=== PATIENT | male | born 1955 | race Caucasian/White ===

== ENCOUNTER 2021-04-20 09:47 | Emergency (ER) | payer OTHER, MEDICARE ==
[~2021-04-20] VITALS: Ht 182.9 cm; Wt 122.7 kg
[~2021-04-20 09:47] MED LIST: CHOL100046 PO; LOSA1TAB41 PO; MULT-1085 PO; VITA1TAB20 PO
[2021-04-20 09:52] VITALS: BP 174/109
[2021-04-20] MEDS ORDERED: furosemide 20MG tablet PO ONE (12:00)
[2021-04-20 12:36] LABS: BASOPHILS % (AUTO) 0.5 % (0-1); EOSINOPHILS # (AUTO) 0.1 X10'3 (0-0.9); EOSINOPHILS % (AUTO) 1.4 % (0-6); HEMATOCRIT 41.1 % (42.0-52.0); HEMOGLOBIN 13.8 g/dl (14.0-17.9); LYMPHOCYTES # (AUTO) 1.3 X10'3 (1.1-4.8); LYMPHOCYTES % (AUTO) 15.3 % (21-51); MEAN CORPUSCULAR HEMOGLOBIN 30.2 PG (27.0-31.0); MEAN CORPUSCULAR HGB CONC 33.6 g/dL (33.0-36.5); MEAN PLATELET VOLUME 9.8 FL (7.4-10.4); MONOCYTES % (AUTO) 11.9 % (2-12); NEUTROPHILS # (AUTO) 5.9 X10'3 (1.8-7.7); NEUTROPHILS % (AUTO) 70.9 % (42-75); PLATELET COUNT 305 X10'3 (140-440); RED BLOOD COUNT 4.57 X10'6 (4.70-6.10); RED CELL DISTRIBUTION WIDTH 14.7 % (11.5-14.5); WHITE BLOOD COUNT 8.3 X10'3 (4.5-11.0)
[2021-04-20 12:52] LABS: ALANINE AMINOTRANSFERASE 22 U/L (12-78); ALBUMIN 3.1 G/DL (3.4-5.0); ALBUMIN/GLOBULIN RATIO 0.7 (1.1-1.5); ALKALINE PHOSPHATASE 92 IU/L (46-116); ANION GAP 7 (8-16); ASPARTATE AMINO TRANSFERASE 17 U/L (10-37); BILIRUBIN,TOTAL 0.3 MG/DL (0.1-1.0); BLOOD UREA NITROGEN 10 MG/DL (7-18); CALCIUM 8.7 MG/DL (8.5-10.1); CHLORIDE 105 MMOL/L (99-107); CREATININE 0.91 MG/DL (0.60-1.10); GLUCOSE 106 MG/DL (70-104); POTASSIUM 3.8 MMOL/L (3.5-5.1); SODIUM 139 MMOL/L (135-145); TOTAL CARBON DIOXIDE 27.2 MMOL/L (24-32); TOTAL PROTEIN 7.4 G/DL (6.4-8.2); eGFR 83 ML/MIN
[2021-04-20] MEDS ORDERED: CEPH-585 PO (13:22)
== END 2021-04-20 13:44 | disposition home or self-care (01) ==
LOC: ER 09:48
DX: L03.115 Cellulitis of right lower limb (principal); R60.0 Localized edema; I10 Essential (primary) hypertension; K21.9 Gastro-esophageal reflux disease without esophagitis; F17.200 Nicotine dependence, unspecified, uncomplicated; Z88.8 Allergy status to other drugs, medicaments and biological substances; Z79.2 Long term (current) use of antibiotics; Z79.899 Other long term (current) drug therapy
CPT/HCPCS: 36415; 80053; 83880; 84484; 85025; 93971; 99284

== ENCOUNTER 2021-05-25 13:48 | Emergency (ER) | payer OTHER, MEDICARE ==
[~2021-05-25] VITALS: Ht 182.9 cm; Wt 100.0 kg
[~2021-05-25 13:48] MED LIST changes: +CEPH-585 PO
[2021-05-25 13:52] VITALS: BP 175/80
[2021-05-25] MEDS ORDERED: BUPIVAcaine 0.5% inj/PF 30 ml vial IJ ONE (14:50)
[2021-05-25] MEDS ORDERED: bacitracin 15gm ointment TP ONE (15:45)
[2021-05-25] MEDS ORDERED: HYDR-3964 PO (16:11)
[2021-05-25] MEDS ORDERED: ONDA4TAB6 PO (16:11)
[2021-05-25] MEDS ORDERED: CEPH-585 PO (16:11)
[2021-05-25] MEDS ORDERED: TETanus/Pertussis (Acell)/Diphther VAC/PF (Tdap-Adult) 0.5ml syringe IMVAC ONE (16:25)
== END 2021-05-25 17:37 | disposition home or self-care (01) ==
LOC: ER 13:48
DX: S92.522A Displaced fracture of middle phalanx of left lesser toe(s), initial encounter for closed fracture (principal); E78.00 Pure hypercholesterolemia, unspecified; I10 Essential (primary) hypertension; K21.9 Gastro-esophageal reflux disease without esophagitis; E11.9 Type 2 diabetes mellitus without complications; F17.200 Nicotine dependence, unspecified, uncomplicated; Z88.8 Allergy status to other drugs, medicaments and biological substances; Z79.2 Long term (current) use of antibiotics; Z79.899 Other long term (current) drug therapy; X58.XXXA Exposure to other specified factors, initial encounter; Y93.89 Activity, other specified; Y92.89 Other specified places as the place of occurrence of the external cause; Y99.8 Other external cause status
CPT/HCPCS: 28515; 73660; 99284

== ENCOUNTER 2025-03-01 09:17 | Day surgery (SDC) | payer MEDICARE ==
[2025-02-22 11:20] LABS: MEAN PLATELET VOLUME 9.4 FL (7.4-10.4); RED CELL DISTRIBUTION WIDTH 13.8 % (11.5-14.5)
--- NOTE | 2025-02-22 11:33 | ELECTROCARDIOGRAPH REPORT ---
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 NINA Ho Measurements Intervals [place] Rate: 72 P: 13 FL: 206 QRS: -46 QRSD: 158 T: 29 QT: 453 QTc: 496 Interpretive Statements Sinus rhythm RBBB and LAFB Electronically Signed On 02-22-2025 20:36:[address] NINA Ho Please click the below link to view image of tracing.
[2025-02-22 11:34] LABS: CREATININE 0.77 MG/DL (0.60-1.10); TOTAL CARBON DIOXIDE 29.5 MMOL/L (24-32); eGFR > 90 ML/MIN
[~2025-03-01] VITALS: Ht 182.9 cm; Wt 104.3 kg
[2025-03-01] VITALS (9 sets, daily range): BP systolic 123–181; BP diastolic 72–92; PULSE 61–72; RESP 15–18; TEMP 97.7; O2SAT 94–98
[~2025-03-01 09:17] MED LIST changes: +ACET-1008 PO; -CEPH-585 PO; -CHOL100046 PO; +DOCU100C40 PO; +HYDROmorphone/PF 0.2 MG/ML SYRINGE IV PRN; +IBUP100T80 PO; -LOSA1TAB41 PO; +METAMUCIL PO; +OMEP20CA16 PO; +POLY119P2 PO; +PSEU-303 PO; -VITA1TAB20 PO; +albuterol 2.5 MG/3 ML nebule NEB PRN; +fentaNYL/PF 50MCG/1 ML 2ML syringe IV PRN; +labetalol 20mg/4ml (5mg/ml) syringe IV PRN; +ondansetron/PF 4mg/2ml inj IV PRN; +ringers solution, lacted 1,000 ML IV SCH
[2025-03-01] MEDS: ceFAZolin 2gm/dext,iso 50mL 50 ML IV ONE (09:40)
[2025-03-01] MEDS: ringers solution, lacted 1,000 ML IV SCH (09:40)
[2025-03-01] MEDS ORDERED: LIDOcaine 1% 30ml preserv. free vial ONE (10:57)
[2025-03-01] MEDS ORDERED: BUPIVAcaine 2.5mg/ml inj 50ml vial (contains preservative) ONE (10:57)
[2025-03-01] MEDS ORDERED: BUPIVACAINE liposomal/PF 13.3 MG/ML 10mL vial IM ONE (10:58)
[2025-03-01] MEDS ORDERED: BUPIVAcaine/PF 2.5mg/ml (0.25%) 10ml vial ONE (10:59)
[2025-03-01] MEDS ORDERED: midazolam 1 mg/ML 2ml injection ONE (11:34)
[2025-03-01] MEDS ORDERED: fentaNYL/PF 50MCG/1 ML 2ML syringe ONE (11:34)
[2025-03-01] MEDS ORDERED: LIDOcaine 1%/PF 5ML 10 MG/ML VIAL ONE (11:40)
[2025-03-01] MEDS ORDERED: rocuronium 10mg/ml inj IV ONE (11:40)
[2025-03-01] MEDS ORDERED: propofol inj 20 ML IV ONE (11:40)
[2025-03-01] MEDS ORDERED: dexamethasone sod phosphate 4mg/ml inj. ONE (11:44)
[2025-03-01] MEDS ORDERED: morphine 4 MG/ML inj SYRINge ONE (11:51)
[2025-03-01] MEDS: BUPIVAcaine/PF 2.5 mg/ml (0.25%) 30ml vial IJ ONE ×2 (12:25→12:27)
[2025-03-01] MEDS: LIDOcaine 1% 30ml preserv. free vial IJ ONE (12:26)
[2025-03-01] MEDS: BUPIVACAINE liposomal/PF 13.3 MG/ML 10mL vial IM ONE (12:28)
[2025-03-01] MEDS ORDERED: acetaminophen 1,000mg/100ml IV 100 ML IV ONE (12:55)
[2025-03-01] MEDS ORDERED: glycopyrrolate 0.2mg/ml inj ONE (12:58)
[2025-03-01] MEDS: morphine 4 MG/ML inj SYRINge IV PRN (13:28)
[2025-03-01] MEDS ORDERED: oxyCODONE/APAP 5-325mg tablet PO PRN (13:35)
--- NOTE | 2025-03-01 13:43 | OPERATIVE REPORT ---
Operative Report Providers to CC CC: CHRIS VIDES MD ~ Date of Procedure: Mar 01, 2025 Pre-Operative Diagnosis: Ventral hernia Post-Operative Diagnosis 4 cm ventral hernia Procedure Performed Robotic assisted, laparoscopic 4 cm ventral hernia repair with mesh Bilateral transversus abdominis plane nerve blocks by injection using 266 mg of Exparel Surgeon: Chris Vides MD FACS Supervisor Incising None Anesthesiologist: Ameya Collado Type of Anesthesia: General Findings: 4 cm fascial defect at the level of the umbilicus with very, very large hernia sac and herniated preperitoneal fat Wound Class I Complications None Prosthetics\Implants used: 12 cm diameter coated polyester mesh Estimated Blood Loss: Minimal Specimen Removed: None Description of Procedure: Patient was brought to the operating room and identified by the nursing staff and the attending physician. Patient was placed supine and a general anesthesia was induced. Preoperative antibiotics were given. The abdomen was prepped and draped in the standard sterile fashion. Through a left subcostal stab incision the abdomen was accessed with a Veress needle technique. Abdomen was insufflated without incident. The incision was lengthened to accommodate a 12 mm optical trocar and the abdomen was entered under laparoscopic visualization. The abdomen was surveyed laparoscopically. Obvious fascial defect was noted in the mid abdomen adjacent to the umbilicus. There was a very, very large hernia sac with no intra-abdominal herniated contents. Under laparoscopic visualization, robotic trochars were placed in the left lateral and left lower quadrant. The da Driss robotic arm was docked to the patient and instruments guided intra-abdominally under laparoscopic visualization. A peritoneal rent was created just lateral to the fascial defect and preperitoneal plane was developed and the entire hernia sac was mobilized out of a large space, completely reduced, and excised circumferentially and set aside. Fascial defect measured 4 cm in diameter. The infraumbilical fat pad was mobilized inferiorly to allow adequate space for mesh deployment. Fascial defect(s) were then reapproximated with running, slow absorbable, 0V lock suture. Good fascial apposition was obtained without significant tension. A coated polyester mesh was then fixed to the anterior abdominal wall with running, absorbable, 2/0, V lock suture. Mesh laid without wrinkles or folds. The mesh measured 12 cm in diameter The da Driss instruments were then removed and the robot undocked from the patient. Bilateral transversus abdominis plane nerve blocks by injection were then placed under laparoscopic visualization using a combination of Marcaine and 266 mg of Exparel. The left subcostal trocar was removed and its fascia closed percutaneously with 0 Vicryl suture under laparoscopic visualization. Remaining trochars were removed after the abdomen was allowed to deflate. Skin was closed at all sites with 4-0 Monocryl sutures and dressed with sterile dressings. Patient was awakened and taken to the postanesthesia care unit in stable condition. Counts repoted as correct: Yes CHRIS VIDES MD Mar 01, 2025 13:43
== END 2025-03-01 14:52 | disposition home or self-care (01) ==
LOC: PAS 09:17
PROVIDERS: ATTEND Surgery
DX: K43.9 Ventral hernia without obstruction or gangrene (principal); I45.2 Bifascicular block; K21.9 Gastro-esophageal reflux disease without esophagitis; J43.9 Emphysema, unspecified; F17.210 Nicotine dependence, cigarettes, uncomplicated; Z90.89 Acquired absence of other organs; Z98.890 Other specified postprocedural states; Z79.899 Other long term (current) drug therapy
CPT/HCPCS: 36415; 49593; 64488; 80053; 82948; 85025; 93005; A4215; A4615; A4618; C1781; J0131; J0666; J1100; J2003; J2250; J2270; J2704; J3010; J3490; J7030; J7120; Z7506; Z7508; Z7512; Z7610